=== PATIENT | female | born 1990 | race Caucasian/White ===

== ENCOUNTER 2020-09-07 22:48 | Emergency (ER) | payer MEDICAID, OTHER ==
[~2020-09-07] VITALS: Ht 160 cm; Wt 61.2 kg
[2020-09-07 23:49] LABS: Urine Bacteria NONE SEEN /hpf (None Seen); Urine Blood 1+ /uL (Negative); Urine Specific Gravity 1.016 (1.001-1.035); Urine WBC 2840 /hpf (0 - 5); Urine WBC Clumps PRESENT /hpf (None Seen)
[2020-09-08 00:05] LABS: Basophils # (auto) 0.2 10 ^3/uL (0-0.2); Basophils % (auto) 1.3 % (0.0-2.0); Eosinophils # (auto) 0.1 10 ^3/uL (0-0.8); Eosinophils % (auto) 0.5 % (0.0-7.0); Hematocrit 35.1 % (36.0-46.0); Hemoglobin 12.1 g/dL (12.2-16.2); Lymphocytes # (auto) 1.7 10 ^3/uL (0.4-5.4); Lymphocytes % (auto) 10.2 % (10.0-50.0); Mean Corpuscular Hemoglobin 31.6 pg (28.0-32.0); Mean Corpuscular Hgb Conc. 34.5 g/dL (32.0-36.0); Mean Corpuscular Volume 91.6 fL (80.0-100.0); Monocytes % (auto) 6.5 % (0.0-12.0); Neutrophils # (auto) 13.2 10 ^3/uL (1.6-8.6); Neutrophils % (auto) 81.5 % (37.0-80.0); Red Blood Cells 3.83 10^6/uL (4.0-5.20); White Blood Cell 16.2 10^3/uL (4.4-10.8)
[2020-09-08 00:41] LABS: Albumin 2.7 g/dL (3.4-5.0); BUN/Creatinine Ratio 12.5; Calcium 8.2 mg/dL (8.5-10.1); Potassium 3.4 mmol/L (3.5-5.1)
[2020-09-08 00:44] LABS: Bilirubin, Total 0.2 mg/dL (0.2-1.0); Total Protein 7.1 g/dL (6.4-8.2)
[2020-09-08] MEDS ORDERED: MORPHINE SULFATE INJECTION 2 MG/ML SYRG IV ONE (01:00)
[2020-09-08] MEDS ORDERED: SODIUM CHLORIDE 0.9% 1,000 ML IV ONE ×2 (01:00→04:45)
[2020-09-08] MEDS ORDERED: PROMETHAZINE HCL 25 MG/ML 1ML IV ONE (01:00)
[2020-09-08] MEDS ORDERED: cefTRIAXone 1GM/50ML D5W 50 ML IV ONE (04:45)
[2020-09-08 18:00] VITALS: BP 113/74
== END 2020-09-08 18:18 | disposition home or self-care (01) ==
LOC: ER 22:48
DX: O20.0 Threatened abortion (principal); O23.42 Unspecified infection of urinary tract in pregnancy, second trimester; Z3A.21 21 weeks gestation of pregnancy; Z20.822 Contact with and (suspected) exposure to COVID-19
CPT/HCPCS: 36415; 80053; 81001; 81025; 84702; 85025; 87426; 96361; 96365; 96366; 96375; 99285; C9803; J0696; J2270; J2550; U0003; 76705; 76775; 76805

== ENCOUNTER 2020-09-09 16:27 | Emergency (ER) | payer MEDICAID ==
[~2020-09-09] VITALS: Ht 160 cm; Wt 61.2 kg
[2020-09-09] MEDS ORDERED: SODIUM CHLORIDE 0.9% 1,000 ML IVB ONE (16:45)
[2020-09-09] MEDS ORDERED: cefTRIAXone 1GM/50ML D5W 50 ML IV ONE (17:00)
[2020-09-09 19:13] LABS: Basophils # (auto) 0.2 10 ^3/uL (0-0.2); Basophils % (auto) 1.1 % (0.0-2.0); Eosinophils # (auto) 0.1 10 ^3/uL (0-0.8); Eosinophils % (auto) 0.4 % (0.0-7.0); Hematocrit 33.2 % (36.0-46.0); Hemoglobin 11.6 g/dL (12.2-16.2); Lymphocytes % (auto) 6.3 % (10.0-50.0); Mean Corpuscular Hemoglobin 32.2 pg (28.0-32.0); Mean Corpuscular Hgb Conc. 34.8 g/dL (32.0-36.0); Mean Corpuscular Volume 92.5 fL (80.0-100.0); Monocytes # (auto) 0.9 10 ^3/uL (0-1.3); Neutrophils # (auto) 13.3 10 ^3/uL (1.6-8.6); Neutrophils % (auto) 86.2 % (37.0-80.0); Nucleated Red Blood Cells % 0.1 %; Red Blood Cells 3.59 10^6/uL (4.0-5.20); Red Cell Distribution Width 13.6 % (11.8-14.3); White Blood Cell 15.5 10^3/uL (4.4-10.8)
[2020-09-09 19:25] LABS: Albumin 2.3 g/dL (3.4-5.0); BUN/Creatinine Ratio 7.1; Calcium 7.8 mg/dL (8.5-10.1); Potassium 3.3 mmol/L (3.5-5.1)
[2020-09-09 19:28] LABS: Bilirubin, Total 0.3 mg/dL (0.2-1.0); Total Protein 6.8 g/dL (6.4-8.2)
[2020-09-09] MEDS ORDERED: SODIUM CHLORIDE 0.9% 1,000 ML IV ONE (20:15)
[2020-09-09] MEDS ORDERED: MORPHINE SULFATE INJECTION 2 MG/ML SYRG IV ONE (22:30)
[2020-09-09] MEDS ORDERED: ONDANSETRON HCL 4 MG/2 ML VIAL IV ONE (22:30)
[2020-09-09 22:37] VITALS: BP 109/67
== END 2020-09-09 23:08 | disposition home or self-care (01) ==
LOC: ER 16:27
DX: O23.01 Infections of kidney in pregnancy, first trimester (principal); Z3A.01 Less than 8 weeks gestation of pregnancy; Z20.822 Contact with and (suspected) exposure to COVID-19
CPT/HCPCS: 36415; 80053; 83605; 84702; 85025; 87040; 87426; 96361; 96365; 96375; 99285; J0696; J2270; J2405; 80307; 81001; 96367

== ENCOUNTER 2024-11-11 19:10 | Emergency (ER) | payer MEDICAID ==
[~2024-11-11] VITALS: Ht 162.6 cm; Wt 59.0 kg
[2024-11-11] MEDS ORDERED: MORPHINE SULFATE INJ 2 MG/ml SYRG IM ONE (21:00)
--- NOTE | 2024-11-11 21:14 | ED.PDOC ---
Musculoskeletal HPI Comments 34-year-old female came to urine to the puncture wound. Patient states she was at a trailer earlier, she stepped on a wooden board and the board broke and the entirety of her left leg went thru. Complaining of left hip and left ankle pain. Noted puncture wound on the left lower leg, and patient claims her rdz bone was protruding earlier but it went back in. Chief Complaint: Puncture Wound Time Seen by MD: 21:13 Primary Care Provider: JODY Reviewed Notes: Nurses Notes Allergies: Coded Allergies: Codeine (Verified Allergy, Unknown, 09/09/20) Home Meds Active Scripts Mupirocin Calcium (Topical) (MUPIROCIN) 2 % Cre, 2 % EX TID for 10 Days, #120 CRE Prov:СВЕТЛАНА DUNCAN MD 11/11/24 Cephalexin (KEFLEX CAPSULE) 250 Mg Cp, 250 MG PO TID for 10 Days, #30 TAB Prov:СВЕТЛАНА DUNCAN MD 11/11/24 Information Source: Patient Mode of Arrival: Ambulatory Location: Left Extremity Location: Ankle, Hip, Leg Severity: Moderate Able to Move Extremity: Yes Bear Weight: Limited Pain: Moderate Hand Dominance: Right Mechanism: Other (wood cut) Circumstances: Accident Onset of Symptoms: After Trauma Symptoms: Pain Associated signs and symptoms: Ankle pain (left), Leg pain (left), Hip pain (left) Past Medical History PAST MEDICAL HISTORY: Anemia Surgical History: Denies all surgeries Surgical History (Other): Left shoulder dislocation PROFILER OPERATOR 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: No 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 History Family History Family History: Reviewed,noncontributory to illness Social History Smoker: Non-Smoker Alcohol: Denies ETOH Use Drugs: Denies Drug Use Lives In: Home Constitutional: denies: chills, diaphoresis, fatigue, fever, malaise, sweats, weakness, others EENTM: denies: blurred vision, double vision, ear bleeding, ear discharge, ear drainage, ear pain, ear ringing, eye pain, eye redness, hearing loss, mouth pain, mouth swelling, nasal discharge, nose bleeding, nose congestion, nose pain, photophobia, tearing, throat pain, throat swelling, voice changes, others Respiratory: denies: cough, hemoptysis, orthopnea, SOB at rest, shortness of breath, SOB with excertion, stridor, wheezing, others Cardiovascular: denies: chest pain, dizzy spells, diaphoresis, Dyspnea on exertion, edema, irregular heart beat, left arm pain, lightheadedness, palpitations, PND, syncope, others Gastrointestinal: denies: abdomen distended, abdominal pain, blood streaked bowels, constipated, diarrhea, dysphagia, difficulty swallowing, hematemesis, melena, nausea, poor appetite, poor fluid intake, rectal bleeding, rectal pain, vomiting, others Genitourinary: denies: abnormal vagina bleeding, burning, dyspareunia, dysuria, flank pain, frequency, hematuria, incontinence, pain, , vagina discha rge, urgency, others Neurological: denies: dizziness, fainting, headache, left sided numbness, left sided weakness, numbness, paresthesia, pre-existing deficit, right sided numbness, right sided weakness, seizure, speech problems, tingling, tremors, weakness, others Musculoskeletal: reports: joint pain (Left hip. Left ankle); denies: back pain, gout, joint swelling, muscle pain, muscle stiffness, neck pain, others Integumetry: reports: wounds (Puncture wound left lower leg); denies: bruises, change in color, change in hair/nails, dryness, laceration, lesions, lumps, rash, others Allergic/Immunocompromised: denies: Difficulty Healing, Frequent Infections, Hives, Itching, others Hematologic/Lymphatic: denies: anemia, blood clots, easy bleeding, easy bruising, swollen glands, others Endocrine: denies: excessive hunger, excessive sweating, excessive thirst, excessive urination, flushing, intolerance to cold, intolerance to heat, unexplained weight gain, unexplained weight loss, others Psychiatric: denies: anxiety, bipolar disorder, depression, hopeless, panic disorder, schizophrenia, sleepless, suicidal, others Physical Exam General Appearance: No Apparent Distress, Normal HEENT: Normal ENT Inspection, Pharynx Normal, TMs Normal Neck: Full Range of Motion, Non-Tender, Normal, Normal Inspection Respiratory: Chest Non-Tender, Lungs Clear, No Accessory Muscle Use, No Respiratory Distress, Normal Breath Sounds Cardiovascular: No Edema, No JVD, No Murmur, No Gallop, Normal Peripheral Pulses, Regular Rate/Rhythm Breast Exam: Deferred Gastrointestinal: No Organomegaly, Non Tender, No Pulsatile Mass, Normal Bowel Sounds, Soft Genitalia: Deferred Pelvic: Deferred Rectal: Deferred Extremities: No calf tenderness, Normal capillary refill, Normal inspection, Normal range of motion, Non-tender, No pedal edema Musculoskeletal : Apperance: Normal Neurologic: Alert, stain applicator II-XII nml as Tested, No Motor Deficits, Normal Affect, Normal Mood, No Sensory Deficits Cerebellar Function: Normal Reflexes: Normal Skin: Dry, Normal Color, Warm Lymphatic: No Adenopathy Was a procedure done? Was a procedure done?: No Differential Diagnosis EXT Differential Diagnosis: Fracture, Sprain, Laceration, Strain X-Ray, Labs, Meds, VS Vital Signs Date Time Temp Pulse Resp B/P (MAP) Pulse Ox O2 Delivery O2 Flow Rate FiO2 11/11/24 22:22 83 20 98 Room Air 11/11/24 22:22 98.4 83 20 110/74 (86) 98 98.4 11/11/24 20:12 98.2 91 16 111/81 (91) 98 98.2 Current Medications Medications (Trade) Dose Ordered Sig/Pramod Route Start Time Stop Time Status Last Admin Ibuprofen (Motrin Tablet) 600 mg ONCE ONCE PO 11/11/24 21:15 11/11/24 21:16 DC 11/11/24 21:24 Time of 1ST Reevaluation: 21:08 Reevaluation 1ST: Unchanged Patient Education/Counseling: Diagnosis, Treatment Family Education/Counseling: No Family Present Departure 1 Departure Time of Disposition: 23:00 Impression: Primary Impression: Left ankle sprain Additional Impressions: Puncture wound of left lower leg Sprain of left hip Disposition: 01 HOME / SELF CARE / HOMELESS Condition: Stable e-Prescriptions Mupirocin Calcium (Topical) (MUPIROCIN) 2 % Cre 2 % EX TID for 10 Days, #120 CRE Prov: СВЕТЛАНА DUNCAN MD 11/11/24 Cephalexin (KEFLEX CAPSULE) 250 Mg Cp 250 MG PO TID for 10 Days, #30 TAB Prov: СВЕТЛАНА DUNCAN MD 11/11/24 Discharged With: Self Critical Care Note Critical Care Time?: No Stability Stability form required: No Heart Score Heart Score: Heart Score Response (Comments) Value History N/A 0 EKG N/A 0 Age N/A 0 Risk Factors N/A 0 Troponin N/A 0 Total 0 I personally scribed for СВЕТЛАНА DUNCAN MD ([email or web address]) on 11/11/24 at 21:14. Electronically submitted by Rashawn Ribera ([facility] СВЕТЛАНА DUNCAN MD November 11, 2024 21:14
[2024-11-11] MEDS: IBUPROFEN 600 MG TAB PO ONE (21:24)
--- NOTE | 2024-11-11 22:14 | DVH ---
CLINICAL INDICATION: FALL INJURY TECHNIQUE: 3 radiographic views of the left hip were obtained. Comparison: None FINDINGS/IMPRESSION: There is no evidence of acute fracture or dislocation. The visualized joint space is well maintained. The alignment is anatomical. There is no radiopaque foreign body.
--- NOTE | 2024-11-11 22:14 | DVH ---
CLINICAL INDICATION: fall injury TECHNIQUE: 3 radiographic views of the left ankle were obtained. Comparison: None FINDINGS/IMPRESSION: There is no evidence of acute fracture or dislocation. The visualized joint space is well maintained. The alignment is anatomical. There is no radiopaque foreign body.
--- NOTE | 2024-11-11 22:15 | DVH ---
XY L TIB FIB XRAY, INDICATION: fall injury puncture wound TECHNICAL DATA: Frontal and lateral views were obtained of the left tib fib. COMPARISON: None FINDINGS: There is no osseous abnormality. Soft tissues are normal. IMPRESSION: No acute fracture or dislocation.
[2024-11-11] MEDS: CEPHALEXIN 250 MG CAP PO ONE (22:20)
[2024-11-11 22:22] VITALS: BP 110/74; PULSE 83; RESP 20; TEMP 98.4; O2SAT 98
[2024-11-11] MEDS ORDERED: CEPH250C PO (22:48)
[2024-11-11] MEDS ORDERED: MUPI2CRE17 EX (22:48)
== END 2024-11-11 23:14 | disposition home or self-care (01) ==
LOC: ER 19:10
DX: S93.402A Sprain of unspecified ligament of left ankle, initial encounter (principal); S73.102A Unspecified sprain of left hip, initial encounter; S81.832A Puncture wound without foreign body, left lower leg, initial encounter; Z88.5 Allergy status to narcotic agent; W22.8XXA Striking against or struck by other objects, initial encounter; Y93.89 Activity, other specified; Y92.89 Other specified places as the place of occurrence of the external cause; Y99.8 Other external cause status
CPT/HCPCS: 73502; 73590; 73610